=== PATIENT | male | born 1990 | race African-American/Black ===

== ENCOUNTER 2025-02-02 00:26 | Emergency (ER) | payer SELFPAY ==
[~2025-02-02] VITALS: Ht 175.3 cm; Wt 135.4 kg
[2025-02-02 00:29] VITALS: TEMP 36.9; O2SAT 99
[2025-02-02 01:09] LABS: BASOPHILS % 0.2 % (0.0-2.0); EOSINOPHILS % 2.2 % (0.0-5.0); HEMATOCRIT. 46.9 % (42.0-52.0); HEMOGLOBIN. 14.8 g/dL (14.0-18.0); LYMPHOCYTES % 35.1 % (20.0-50.0); MEAN PLATELET VOLUME 8.4 fl (7.4-10.4); MONOCYTES % 6.2 % (2.0-8.0); NEUTROPHILS % 56.3 % (40.0-76.0); PLATELET 323 x1000/uL (130-400); RED BLOOD CELL COUNT 5.90 mill/uL (4.7-6.1); RED CELL DISTRIBUTION WIDTH 13.8 % (11.6-14.6)
[2025-02-02] MEDS: SODIUM CHLORIDE 0.9% 1,000 ML IV ONE (01:10)
[2025-02-02 01:14] LABS: BG DEOXYHEMOGLOBIN 29.4 % (0.0-5.0)
[2025-02-02 01:39] LABS: CREATININE 1.1 mg/dL (0.6-1.3)
[2025-02-02 01:40] LABS: UREA NITROGEN BLOOD 7 mg/dL (9-23)
[2025-02-02 01:41] LABS: ASPARTATE AMINOTRANSFERASE 17 IU/L (<34)
[2025-02-02 01:42] LABS: BILIRUBIN DIRECT 0.2 mg/dL (<=3.0); BILIRUBIN TOTAL 0.5 mg/dL (0.1-1.0); PROTEIN TOTAL 7.6 g/dL (6.0-8.3)
[2025-02-02] MEDS ORDERED: METF-414 MT (01:54)
[2025-02-02] MEDS: INSULIN LISPRO 100 UNITS/ML SUBCUT ONE (02:21)
[2025-02-02 02:26] VITALS: BP 159/91; PULSE 75; RESP 12; O2SAT 99
== END 2025-02-02 02:37 | disposition home or self-care (01) ==
LOC: ER 00:26 → EDBD 00:26 → ER 02:37 → CMPBEDREQ 08:00
DX: E11.65 Type 2 diabetes mellitus with hyperglycemia (principal); R06.02 Shortness of breath; Z88.0 Allergy status to penicillin
CPT/HCPCS: 99284; 96360; 80076; 80048; 82010; 82962; 85025; 36415; 82375; 82803; 93005; 96372; J1815; J7030